=== PATIENT | female | born 1990 | race Caucasian/White ===

== ENCOUNTER → 2016-05-11 | Outpatient (CLI) | payer OTHER ==
[2016-05-11 16:54] LABS: BASOPHILS # (AUTO) 0.03 10*3/UL; BASOPHILS % (AUTO) 0.3 % (0-1); EOSINOPHILS % (AUTO) 2.4 % (0-8); HEMATOCRIT 38.5 % (37.0-47.0); HEMOGLOBIN 12.8 g/dL (12.0-16.0); IMM GRAN % (AUTO) 0.1 % (0-5); IMM GRAN# (AUTO) 0.01 10*3/UL; LYMPHOCYTES % (AUTO) 38.8 % (10-50); MEAN CORPUSCULAR HEMOGLOBIN 30.5 PG (27-31); MEAN CORPUSCULAR HGB CONC 33.2 g/dL (33-37); MEAN PLATELET VOLUME 11.2 FL (7.4-12.2); MONOCYTES # (AUTO) 0.87 10*3/UL (0.3-0.8); MONOCYTES % (AUTO) 9.4 % (5-15); NEUTROPHILS # (AUTO) 4.56 10*3/UL; RDW COEFFICIENT OF VARIATION 12.5 % (11.5-14.5); RED BLOOD COUNT 4.19 10^6/uL (4.20-5.40); WHITE BLOOD COUNT 9.29 10^3/uL (4.8-10.8)
[2016-05-11 17:18] LABS: BILIRUBIN,TOTAL 0.5 mg/dL (0.3-1.2); BLOOD UREA NITROGEN 10 mg/dL (7-22); BUN/CREATININE RATIO 16.66 (6-20); CALCIUM 9.2 mg/dL (8.7-10.7); CHLORIDE 101 meq/L (98-112); CREATININE 0.6 mg/dL (0.50-1.20); EST GLOMERULAR FILTRATION > 60 (>60 ml/min/1.73m(2)); GLUCOSE 73 mg/dL (78-110); POTASSIUM 4.1 meq/L (3.8-5.2); SODIUM 138 meq/L (135-145)
[2016-05-11 17:18] LABS: PLATELET MORPHOLOGY COMMENT NORMAL MORPHOLOGY (NORM)
[2016-05-11 17:19] LABS: ASPARTATE AMINO TRANSFERASE 42 IU/L (8-39); TOTAL PROTEIN 8.1 g/dL (6.1-8.0)
--- NOTE | 2016-05-11 18:37 | DI ---
CT ABD W/CN AND PELVIS W/CN,05/11/2016 5:21 PM: Clinical History: Pelvic pain Previous Exam: None at this facility. Findings: Multiple helically acquired CT images are obtained through the abdomen and pelvis following the intra venous administration of Isovue 300, and demonstrate a normal appendix. The urinary bladder is unrema rkable. Intrauterine device is seen within the uterus. There is a large 5.5 x 3.9 cm right ovarian cyst.. There is moderate stool throughout the colon. The liver, gallbladder, spleen, adrenals and pancreas are unremarkable. The lung bases are clear. The skeletal structures are unremarkable. Impression: 5.5 x 3.9 cm right ovarian cyst. Consider followup pelvic sonography to document resolution. It may a lso be appropriate to simply follow this clinically.
== END ==
LOC: CT 15:49
PROVIDERS: ATTEND Physician Assistant
DX: R10.2 Pelvic and perineal pain (principal); N83.201 Unspecified ovarian cyst, right side
CPT/HCPCS: 74177; 80053; 85025; 86140; 87088; 87210; 87491; 87591

== ENCOUNTER → 2016-11-09 | Outpatient (CLI) | payer OTHER ==
[2016-11-09 12:24] LABS: HEMOGLOBIN A1C 5.29 % (4.2-6.0)
[2016-11-09 13:29] LABS: VITAMIN D 25-HYDROXY 84.2 NG/ML (30-100)
[2016-11-09 13:46] LABS: FERRITIN 72.5 ng/mL (12.00-336.70)
== END ==
LOC: LAB 12:05
PROVIDERS: ATTEND Nurse Practitioner
DX: Z00.00 Encounter for general adult medical examination without abnormal findings (principal)
CPT/HCPCS: 36415; 82306; 82728; 83036